=== PATIENT | female | born 1945 | race American Indian/Alaskan Native ===

== ENCOUNTER 2017-11-09 16:13 | Emergency (ER) | payer OTHER, MEDICARE ==
[2017-11-09] MEDS ORDERED: CATAPRES ONE ×2 (16:27)
[2017-11-09] MEDS ORDERED: CATAPRES PO ONE (16:35)
[2017-11-09 16:51] LABS: Hematocrit 34.3 % (30.3-42.9); Hemoglobin 10.9 gm/dl (10.1-14.3); Mean Corpuscular HGB Conc 32 % (30-34); Mean Corpuscular Volume 76 fl (79-97); Platelet Count 231 K/mm3 (140-440); Red Blood Count 4.54 M/mm3 (3.65-5.03)
[2017-11-09 16:52] LABS: Mean Corpuscular Hemoglobin 24 pg (28-32); Red Cell Distribution Width 25.6 % (13.2-15.2)
[2017-11-09 17:02] LABS: BUN/Creatinine Ratio 14; Blood Urea Nitrogen 10 mg/dL (7-17); Calcium 9.2 mg/dL (8.4-10.2); Hemolysis Index 3
[2017-11-09 17:30] LABS: Basophils % (Manual) 0 % (0.0-1.8); RBC Morphology Normal; Total Cells Counted 100
[2017-11-09 17:31] LABS: Anisocytosis 1+; Hypochromasia 1+
[2017-11-09] MEDS ORDERED: APRESOLINE IV ONE (18:15)
--- NOTE | 2017-11-09 18:18 | Cat Scan Report ---
FINAL REPORT PROCEDURE: CT HEAD/BRAIN WO CON TECHNIQUE: Computerized tomography of the head was performed without contrast material. HISTORY: HTN, head pain COMPARISON: No prior studies are available for comparison. FINDINGS: No CT evidence of intracranial mass, hemorrhage, acute territorial infarction, or hydrocephalus. There is bilateral patchy white matter low attenuation, which can be related to chronic microvascular ischemic changes. Calvarium is intact. Visualized paranasal sinuses and mastoids are aerated. IMPRESSION: No CT evidence of acute intracranial abnormality. Chronic microvascular ischemic changes are present
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
[2017-11-09 20:34] VITALS: BP 146/63
== END 2017-11-09 20:34 | disposition home or self-care (01) ==
LOC: ED 16:13
DX: I16.0 Hypertensive urgency (principal); R40.4 Transient alteration of awareness; Z90.710 Acquired absence of both cervix and uterus; Z87.891 Personal history of nicotine dependence; V89.2XXA Person injured in unspecified motor-vehicle accident, traffic, initial encounter; Y93.89 Activity, other specified; Y99.8 Other external cause status; Y92.410 Unspecified street and highway as the place of occurrence of the external cause
CPT/HCPCS: 36415; 70450; 80048; 85007; 85025; 93005; 93010; 96374; 99285; J0360